=== PATIENT | female | born 1940 | race Caucasian/White ===

== ENCOUNTER → 2017-09-22 | Outpatient (CLI) | payer OTHER ==
[2016-04-04 14:37] VITALS: BP 150/71
--- NOTE | 2017-09-22 15:38 | CT ---
HISTORY: Memory loss. Study: CT brain without contrast. Comparison: None. Technique: Multiple axial images of the brain were obtained from the skull base to the vertex without administra tion of IV contrast. Findings: There is mild ventricular, as well as, sulcal and cisternal prominence, in addition to, at herosclerotic changes of the proximal intracranial carotid and vertebral arteries, which is not out o f proportion to the patient's chronological age. No acute intraparenchymal hemorrhage or mass can be identified. No extra-axial fluid collections are seen. No alteration in the attenuation of the bra in parenchyma can be identified to suggest acute or subacute ischemic change. The ventricular system is symmetric and nondilated. The extracranial structures are grossly unremarkable. IMPRESSION: Changes of advancing chronological age without acute intracranial abnormality. Reported By:
== END ==
LOC: EDSTATUS 14:00 → RAD 14:20
PROVIDERS: ATTEND Internal Medicine
DX: R41.3 Other amnesia (principal)
CPT/HCPCS: 70450

== ENCOUNTER 2020-03-30 16:28 | Inpatient (IN) ==
[2020-03-30] MEDS ORDERED: TUSSIONEX PENNKINETIC SUSP PO PRN (19:28)
[2020-03-30] MEDS ORDERED: SALINE 3% 15 ML NEB TX ONE (19:43)
[2020-03-30 20:06] LABS: ABG HCO3 27.6 mmol/L (22-26)
[2020-03-30 20:10] LABS: BASOPHILS % (AUTO) 0.3 % (0.2-1.0); EOSINOPHILS # (AUTO) 0.1 x10^3/uL (0.0-0.2); EOSINOPHILS % (AUTO) 1.5 % (0.9-2.9); HEMOGLOBIN 10.4 g/dL (12.0-16.0); LYMPHOCYTES # (AUTO) 1.7 X10^3/uL (1.3-2.9); LYMPHOCYTES % (AUTO) 22.7 % (21.0-51.0); MEAN CORPUSCULAR HEMOGLOBIN 29.7 pg (27.0-34.0); MEAN CORPUSCULAR HGB CONC 33.6 g/dL (33.0-35.0); MEAN CORPUSCULAR VOLUME 88.2 fL (80.0-100.0); MEAN PLATELET VOLUME 8.3 fL (7.4-11.0); MONOCYTES # (AUTO) 0.8 x10^3/uL (0.3-0.8); MONOCYTES % (AUTO) 10.5 % (0.0-13.0); PLATELET COUNT 210 X10^3/uL (150.0-450.0); RED BLOOD COUNT 3.51 X10^6/uL (3.5-5.4); WHITE BLOOD COUNT 7.7 X10^3/uL (3.6-10.0)
[2020-03-30] MEDS ORDERED: SALINE 3% 15 ML NEB TX NEB ONE (20:12)
[2020-03-30] MEDS ORDERED: PROVENTIL NEB TX 0.083% 2.5MG/ 3ML NEB PRN (20:13)
[2020-03-30 20:18] LABS: ALANINE AMINOTRANSFERASE 13 Units/L (12-78); ALKALINE PHOSPHATASE 60 Units/L (46-116); ASPARTATE AMINO TRANSFERASE 20 Units/L (15-37); BLOOD UREA NITROGEN 16 mg/dL (7-18); CALCIUM 8.6 mg/dL (8.5-10.1); CARBON DIOXIDE 28.6 mmol/L (21-32); CHLORIDE 102 mmol/L (98-107); COR CA(FOR HYPOALB) 9.4 mg/dL (8.5-10.1); CREATININE 1.02 mg/dL (0.55-1.02); SODIUM 138 mmol/L (136-145); TOTAL PROTEIN 7.3 g/dL (6.4-8.2); eGFR NON BLACK RACES 55 (>60)
--- NOTE | 2020-03-30 20:34 | RAD ---
HISTORYCOUGH, PNEUMONIASTUDYCHEST, 1 VIEWCOMPARISONNoneFINDINGSThe trachea is midline. The cardiac silhouette is upper limits of normal. Lungs appear hyperexpanded with flattening of the diaphragm, suggest underlying COPD changes. There is bilateral apical pleural thickening/scarring. A few calcified pulmonary nodule suspected in the right middle and lower lung zone. Hazy opacities at the right middle/lower lung zone concerning for patchy infiltrate/pneumonia. No pleural effusion or pneumothorax. Multilevel spondylosis.IMPRESSIONFindings concerning for patchy hazy infiltrate/pneumonia of the right middle/lower lung zone. Follow-up is recommended.Findings suggest underlying COPD changes and prior granulomatous disease.Electronically signed by: Cleopatra Almaraz (Mar 30, 2020 20:32:38)
[2020-03-30] MEDS ORDERED: LEVAQUIN PREMIX IV 750 MG 750 MG/150 ML BAG IV SCH (21:00)
[2020-03-30] MEDS ORDERED: NS 1/2 1000 ML IV 1,000 ML IV ONE (21:35)
[2020-03-30] MEDS: NS 1/2 1000 ML IV 1,000 ML IV SCH (21:55)
[2020-03-30] MEDS: VSL#3 PO SCH (21:55)
[2020-03-30] MEDS: ROBITUSSIN DM PO SCH ×2 (21:55→22:58)
[2020-03-30] MEDS ORDERED: FORTAZ or TAZICEF VIAL INJ 1 G in NS 100 ML IV + SPIKE MINIBAG* 100 ML IV SCH (22:00)
[2020-03-30] MEDS: AMBIEN PO PRN (23:56)
[2020-03-31 04:44] VITALS: BMI 19.7
[2020-03-31 06:43] LABS: BASOPHILS % (AUTO) 0.4 % (0.2-1.0); EOSINOPHILS # (AUTO) 0.1 x10^3/uL (0.0-0.2); EOSINOPHILS % (AUTO) 2.5 % (0.9-2.9); HEMATOCRIT 26.2 % (36.0-47.0); LYMPHOCYTES # (AUTO) 1.6 X10^3/uL (1.3-2.9); LYMPHOCYTES % (AUTO) 26.9 % (21.0-51.0); MEAN CORPUSCULAR HEMOGLOBIN 30.1 pg (27.0-34.0); MEAN CORPUSCULAR HGB CONC 34.3 g/dL (33.0-35.0); MEAN CORPUSCULAR VOLUME 87.8 fL (80.0-100.0); MEAN PLATELET VOLUME 8.3 fL (7.4-11.0); MONOCYTES # (AUTO) 0.7 x10^3/uL (0.3-0.8); MONOCYTES % (AUTO) 11.8 % (0.0-13.0); NEUTROPHILS # (AUTO) 3.4 x10^3/uL (2.2-4.8); NEUTROPHILS % (AUTO) 58.4 % (42.0-75.0); PLATELET COUNT 176 X10^3/uL (150.0-450.0); RED BLOOD COUNT 2.98 X10^6/uL (3.5-5.4); WHITE BLOOD COUNT 5.8 X10^3/uL (3.6-10.0)
[2020-03-31 06:59] LABS: ALANINE AMINOTRANSFERASE 12 Units/L (12-78); ALBUMIN 2.5 g/dL (3.4-5.0); ALKALINE PHOSPHATASE 52 Units/L (46-116); ASPARTATE AMINO TRANSFERASE 18 Units/L (15-37); BLOOD UREA NITROGEN 11 mg/dL (7-18); CALCIUM 8.3 mg/dL (8.5-10.1); CHLORIDE 106 mmol/L (98-107); COR CA(FOR HYPOALB) 9.5 mg/dL (8.5-10.1); CREATININE 0.93 mg/dL (0.55-1.02); SODIUM 140 mmol/L (136-145); TOTAL PROTEIN 6.5 g/dL (6.4-8.2); eGFR NON BLACK RACES > 60 (>60)
[2020-03-31] MEDS ORDERED: NS 1/2 1000 ML IV 1,000 ML IV ONE (09:05)
[2020-03-31] MEDS: ROBITUSSIN DM PO SCH ×4 (09:15→21:28)
[2020-03-31] MEDS: VSL#3 PO SCH (09:15)
[2020-03-31] MEDS: FORTAZ or TAZICEF VIAL INJ 1 G in NS 100 ML IV + SPIKE MINIBAG* 100 ML IV SCH ×2 (09:15→21:28)
[2020-03-31] MEDS: NS 1/2 1000 ML IV 1,000 ML IV SCH (09:16)
[2020-03-31 15:12] LABS: BILIRUBIN,URINE NEGATIVE (NEGATIVE); BLOOD/HEMOGLOBIN,URINE NEGATIVE (NEGATIVE); GLUCOSE, URINE NEGATIVE (NEGATIVE); KETONES,URINE NEGATIVE (NEGATIVE); LEUKOCYTE ESTERASE ,URINE NEGATIVE (NEGATIVE); NITRITES,URINE NEGATIVE (NEGATIVE); PH,URINE 6.5 (5.0 - 8.0); PROTEIN,URINE NEGATIVE (NEGATIVE); UROBILINOGEN,URINE NORMAL (NORMAL)
[2020-03-31 15:18] LABS: APPEARANCE,URINE CLEAR (CLEAR); COLOR,URINE PALE YELLOW (YELLOW)
--- NOTE | 2020-03-31 19:39 | DR.H&P ---
H&P - History & Physical for Day of: H&P Date: 03/30/20 - Chief Complaint Chief Complaint: FEVER, SOB, FATIGUE, WEAKNESS - History of Present Illness History of Present Illness: IS A 80 YEAR OLD PATIENT OF OURS WHO PRESENTED TO THE HOSPITAL A DIRECT ADMISSION DUE TO PERSISTENT FEVER, SHORTNESS OF BREATH, FATIGUE, AND WEAKNESS. FATIGUE AND WEAKNESS STARTED APPROXIMATELY TWO WEEKS PRIOR, BUT SHORTNESS OF BREATH AND FEVER STARTED ON THURSDAY. SHE HAS HAD RECENT EXPOSURE TO COVID-19. SHE REPORTS THAT HER RECENTLY FROM COVID. ON ARRIVAL TO THE HOSPITAL, VITALS WERE 98.1-71-20-100%-174/67. LABS WERE OBTAINED. ABNORMAL LAB VALUES INCLUDE THE FOLLOWING: HGB 10.4, HCT 31.0, ALBUMIN 3.0. AN ABG WAS OBTAINED AND REVEALED: PH 7.480, PC02 37, P02 96, HC03 27.6, 02 SAT 98, BASE EXCESS 4.0, FI02 21.0. URINALYSIS UNREMARKABLE. COVID-19 NEGATIVE. BLOOD CULTURES WERE SET UP. A CHEST XRAY WAS OBTAINED AND REVEALED: Findings concerning for patchy hazy infiltrate/pneumonia of the right middle/lower lung zone. Follow-up is recommended. Findings suggest underlying COPD changes and prior granulomatous disease. SHE WAS STARTED ON THE PNEUMONIA PROTOCOL WITH LEVAQUIN 750MG IV Q48H, FORTAZ 1G IV BID, TUSSIONEX 5ML P Q12H PRN, ROBITUSSIN DM 10 ML PO QID, 1/2NS AT 75 ML/HR, AND DUONEBS QID PRN. OTHERWISE, WE PLAN TO FOLLOW UP WITH AM LABS, CHEST XRAY, AND CONTINUE TO MONITOR. - Past Medical History Past Medical History: Arthritis, Depression, Dyslipidemia, GERD - Past Surgical History Surgical History: Hysterectomy, Ortho Surgery, Other - Family History Family Medical History: CA, Coronary Artery Disease, Heart Failure, Sudden Cardiac - Social History Alcohol Use: None Drug Use: None - Medications Home Medications: bee venom protein (honey bee) Allergy (Verified 03/31/20 03:14) codeine Adverse Reaction (Verified 02/18/18 10:08) CONTINUE taking the following medications diazepam 5 mg PO DAILY PRN 03/30/20 [History] donepezil 5 mg PO DAILY 03/30/20 [History] hydrocodone-acetaminophen 1 tab PO Q4-6H PRN 03/30/20 [History] levothyroxine 25 mcg PO DAILY 03/30/20 [History] megestrol 20 mg PO DAILYAC 03/30/20 [History] montelukast 10 mg PO DAILY 03/30/20 [History] multivitamin 1 tab PO DAILY 03/30/20 [History] sertraline 75 mg PO DAILY 03/30/20 [History] zinc gluconate 30 mg PO DAILY 03/30/20 [History] zolpidem 5 mg PO HS 03/30/20 [History] - Review of Systems Constitutional: See HPI, Fever, Chills, Weakness, Malaise Eyes: No Symptoms Reported ENT: No Symptoms Reported Respiratory: Shortness of Breath, Wheezing Cardiovascular: No Symptoms Reported Gastrointestinal: No Symptoms Reported Genitourinary: No Symptoms Reported Musculoskeletal: No Symptoms Reported Skin: No Symptoms Reported Neurological: Weakness - Physical Exam Vital Signs: Temperature 98.5 F Pulse Rate [Right Radial] 70 Pulse Rate 82 Respiratory Rate 18 Blood Pressure [Left Arm] 130/60 Blood Pressure 136/60 O2 Sat by Pulse Oximetry 99 Oriented: Normal Eyes: Normal Ear: Normal Nose: Normal Throat: Normal Respiratory: Diminished Throughout, Wheezes Throughout Cardiovascular: Normal : Normal Auscultation: Bowel Sounds: Normal Palpation: Normal Tenderness: Normal Skin: Normal Musculoskeletal: Normal Psychiatric: Normal Mood Description: Calm Affect: Normal Speech Pattern: Clear - Assessment/Plan (1) Pneumonia Qualifiers: Pneumonia type: due to unspecified organism Laterality: right Lung location: unspecified part of lung Qualified Code(s): J18.9 - Pneumonia, unspecified organism Status: Acute Plan: LEVAQUIN 750MG IV Q48H, FORTAZ 1G IV BID, TUSSIONEX 5ML P Q12H PRN, ROBITUSSIN DM 10 ML PO QID, 1/2NS AT 75 ML/HR, AND DUONEBS QID PRN. - Allergies Allergies/Adverse Reactions: Allergies Allergy/AdvReac Type Severity Reaction Status Date / Time bee venom protein (honey bee) Allergy Verified 03/31/20 03:14 codeine AdvReac Verified 02/18/18 10:08
[2020-03-31] MEDS: NORCO 5/325 MG TAB PO PRN (21:29)
[2020-03-31] MEDS: AMBIEN PO PRN (21:30)
[2020-04-01] MEDS: NS 1/2 1000 ML IV 1,000 ML IV SCH ×3 (00:32→12:44)
[2020-04-01] MEDS ORDERED: NS 1/2 1000 ML IV 1,000 ML IV ONE (04:06)
--- NOTE | 2020-04-01 06:36 | RAD ---
HISTORYSOBSTUDYCHEST, 1 [id number]/16/2020FINDINGSTrachea is midline. Heart size unchanged. Calcified granuloma within the right mid and lower lung. No new airspace opacity or pleural effusion. Biapical pleural parenchymal scarring is noted. No pneumothorax.IMPRESSIONNo acute cardiopulmonary abnormality or change from prior exam.Electronically signed by: JESSICA GERARDO (Apr 01, 2020 06:35:03)
[2020-04-01 07:16] LABS: BASOPHILS % (AUTO) 0.7 % (0.2-1.0); EOSINOPHILS # (AUTO) 0.2 x10^3/uL (0.0-0.2); EOSINOPHILS % (AUTO) 3.9 % (0.9-2.9); HEMATOCRIT 27.1 % (36.0-47.0); HEMOGLOBIN 9.2 g/dL (12.0-16.0); LYMPHOCYTES # (AUTO) 1.8 X10^3/uL (1.3-2.9); LYMPHOCYTES % (AUTO) 40.1 % (21.0-51.0); MEAN CORPUSCULAR HEMOGLOBIN 29.8 pg (27.0-34.0); MEAN CORPUSCULAR HGB CONC 34.1 g/dL (33.0-35.0); MEAN CORPUSCULAR VOLUME 87.5 fL (80.0-100.0); MEAN PLATELET VOLUME 8.2 fL (7.4-11.0); MONOCYTES # (AUTO) 0.5 x10^3/uL (0.3-0.8); MONOCYTES % (AUTO) 11.1 % (0.0-13.0); NEUTROPHILS % (AUTO) 44.2 % (42.0-75.0); PLATELET COUNT 194 X10^3/uL (150.0-450.0); RED CELL DISTRIBUTION WIDTH 14.3 % (11.6-16.5); WHITE BLOOD COUNT 4.5 X10^3/uL (3.6-10.0)
[2020-04-01 07:18] LABS: ALANINE AMINOTRANSFERASE 16 Units/L (12-78); ALBUMIN 2.5 g/dL (3.4-5.0); ALKALINE PHOSPHATASE 50 Units/L (46-116); ASPARTATE AMINO TRANSFERASE 20 Units/L (15-37); BLOOD UREA NITROGEN 13 mg/dL (7-18); CALCIUM 8.5 mg/dL (8.5-10.1); CARBON DIOXIDE 25.9 mmol/L (21-32); CHLORIDE 109 mmol/L (98-107); COR CA(FOR HYPOALB) 9.7 mg/dL (8.5-10.1); CREATININE 1.08 mg/dL (0.55-1.02); SODIUM 144 mmol/L (136-145); TOTAL PROTEIN 6.5 g/dL (6.4-8.2); eGFR NON BLACK RACES 52 (>60)
[2020-04-01] MEDS ORDERED: TAB-A-VITE PO ONE (07:28)
[2020-04-01] MEDS ORDERED: ARICEPT TAB 5 MG ONE (07:28)
[2020-04-01] MEDS ORDERED: SINGULAIR TAB 10 MG ONE (07:29)
[2020-04-01] MEDS ORDERED: MEGACE PO ONE (07:29)
[2020-04-01] MEDS ORDERED: ZOLOFT PO ONE (07:29)
[2020-04-01] MEDS ORDERED: ZINC GLUCONATE 30 MG PO SCH (09:00)
[2020-04-01] MEDS: ARICEPT TAB 5 MG PO SCH (09:41)
[2020-04-01] MEDS: TAB-A-VITE PO SCH (09:42)
[2020-04-01] MEDS: ZOLOFT PO SCH (09:52)
[2020-04-01] MEDS: SINGULAIR TAB 10 MG PO SCH (09:52)
[2020-04-01] MEDS: ROBITUSSIN DM PO SCH ×4 (09:52→21:08)
[2020-04-01] MEDS: FORTAZ or TAZICEF VIAL INJ 1 G in NS 100 ML IV + SPIKE MINIBAG* 100 ML IV SCH ×2 (09:52→21:08)
[2020-04-01] MEDS: MEGACE PO SCH ×2 (09:52→16:28)
[2020-04-01] MEDS: ZINC SULFATE PO SCH (09:53)
[2020-04-01] MEDS: SYNTHROID 25 mcg TAB PO SCH (09:53)
[2020-04-01] MEDS: VSL#3 PO SCH (09:53)
--- NOTE | 2020-04-01 12:05 | PCM.PROG ---
Progress Note - Progress Note for Day of Date of Exam: 04/01/20 - Subjective Subjective: IS BEING TREATED FOR RIGHT MIDDLE AND LOWER LOBE PNEUMONIA. TODAY, SHE IS ALERT AND ORIENTED, LYING IN BED ON MORNING ROUNDS. SHE CONTINUES WITH COMPLAINTS OF SHORTNESS OF BREATH AND WEAKNESS TODAY. SHE DOES ADMIT TO SLIGHT IMPROVEMENT IN SYMPTOMS SINCE ONE DAY PRIOR. ON EXAMINATION, HEART IS REGULAR IN RATE AND RHYTHM. BILATERAL LUNGS ARE NOTED WITH SCATTERED WHEEZING THROUGHOUT. ABDOMEN IS ROUND, SOFT, AND NON-TENDER WITH NORMAL BOWEL SOUNDS NOTED IN ALL QUADRANTS. HER VITALS THIS MORNING ARE 98.2-70-18-100%-149/70. LABS WERE OBTAINED. ABNORMAL LAB VALUES INCLUDE THE FOLLOWING: RBC 3.10, HGB 9.2, HCT 27.1, CHLORIDE 109, CREATININE 1.08, ALBUMIN 2.5. BLOOD CULTURES ARE PENDING. A CHEST XRAY WAS OBTAINED THIS MORNING AND REVEALED: Trachea is midline. Heart size unchanged. Calcified granuloma within the right mid and lower lung. No new airspace opacity or pleural effusion. Biapical pleural parenchymal scarring is noted. No pneumothorax. SHE IS CURRENTLY RECEIVING 1/2NS AT 75 ML/HR, LEVAQUIN 750MG IV Q48H, FORTAZ 1G IV BID, TUSSIONEX 5ML PO Q12H PRN, ROBITUSSIN DM 10 ML PO QID, AND HER HOME MEDICATIONS WERE RESUMED. WE WILL CONTINUE WITH CURRENT PLAN OF CARE TODAY. OTHERWISE, WE WILL FOLLOW UP WITH AM LABS AND CONTINUE TO MONITOR. - Past Medical Family Social History Past Med/Fam/Surg Hx: No changes since H&P Allergies: Allergies bee venom protein (honey bee) Allergy (Verified 03/31/20 03:14) codeine Adverse Reaction (Verified 02/18/18 10:08) - Review of Systems ROS: No change since H&P - Vital Signs and I&O's Vital Signs: Temperature 98.2 F Pulse Rate [Right Radial] 70 Pulse Rate 73 Respiratory Rate 18 Blood Pressure [Left Arm] 149/70 Blood Pressure 136/60 O2 Sat by Pulse Oximetry 95 Intake and Output: Intake & Output 03/30/20 03/31/20 04/01/20 04/02/20 11:59 11:59 11:59 11:59 Intake Total 986 / 986 3964 / 3964 Output Total 950 / 950 Balance 986 / 986 3014 / 3014 - Physical Exam Oriented: Normal Eyes: Normal Ear: Normal Nose: Normal Throat: Normal Respiratory: Generalized, Diminished, Wheezes Cardiovascular: Normal : Normal Auscultation: Bowel Sounds: Normal Palpation: Normal Tenderness: Normal Skin: Normal Musculoskeletal: Normal Psychiatric: Normal Mood Description: Calm Affect: Normal Speech Pattern: Clear, Appropriate - Laboratory and Diagnostics Result Diagrams: 04/01/20 06:35 04/01/20 06:35 Labs: 03/30/20 20:10 Blood Blood Culture - Preliminary 03/30/20 20:18 Blood Blood Culture - Preliminary Laboratory WBC 4.5 X10^3/uL (3.6-10.0) 04/01/20 06:35 RBC 3.10 X10^6/uL (3.5-5.4) L 04/01/20 06:35 Hgb 9.2 g/dL (12.0-16.0) L 04/01/20 06:35 Hct 27.1 % (36.0-47.0) L 04/01/20 06:35 MCV 87.5 fL (80.0-100.0) 04/01/20 06:35 MCH 29.8 pg (27.0-34.0) 04/01/20 06:35 MCHC 34.1 g/dL (33.0-35.0) 04/01/20 06:35 RDW 14.3 % (11.6-16.5) 04/01/20 06:35 Plt Count 194 X10^3/uL (150.0-450.0) 04/01/20 06:35 MPV 8.2 fL (7.4-11.0) 04/01/20 06:35 Neut % (Auto) 44.2 % (42.0-75.0) 04/01/20 06:35 Lymph % (Auto) 40.1 % (21.0-51.0) 04/01/20 06:35 [place] % (Auto) 11.1 % (0.0-13.0) 04/01/20 06:35 Eos % (Auto) 3.9 % (0.9-2.9) H 04/01/20 06:35 Baso % (Auto) 0.7 % (0.2-1.0) 04/01/20 06:35 Neut # (Auto) 2.0 x10^3/uL (2.2-4.8) L 04/01/20 06:35 Lymph # (Auto) 1.8 X10^3/uL (1.3-2.9) 04/01/20 06:35 [place] # (Auto) 0.5 x10^3/uL (0.3-0.8) 04/01/20 06:35 Eos # (Auto) 0.2 x10^3/uL (0.0-0.2) 04/01/20 06:35 Baso # (Auto) 0.0 X10^3/uL (0.0-0.1) 04/01/20 06:35 Absolute Nucleated RBC 0.1 /100WBC 04/01/20 06:35 Sample Site Lb 03/30/20 20:00 ABG pH 7.480 (7.35-7.45) H 03/30/20 20:00 ABG pCO2 37.0 mmHg (35.0-45.0) 03/30/20 20:00 ABG pO2 96.0 mmHg (80.0-100.0) 03/30/20 20:00 ABG HCO3 27.6 mmol/L (22-26) H 03/30/20 20:00 ABG O2 Saturation 98.0 % (90-100) 03/30/20 20:00 ABG Base Excess 4.0 mmol/L (-2.0-2.0) H 03/30/20 20:00 Teodoro Test N/a 03/30/20 20:00 A-a Gradient 7.0 mmHg 03/30/20 20:00 FiO2 21.0 03/30/20 20:00 Blood Gas Comments Neema well ae 03/30/20 20:00 Sodium 144 mmol/L (136-145) 04/01/20 06:35 Corrected Sodium TNP 04/01/20 06:35 Potassium 4.0 mmol/L (3.5-5.1) 04/01/20 06:35 Chloride 109 mmol/L (98-107) H 04/01/20 06:35 Carbon Dioxide 25.9 mmol/L (21-32) 04/01/20 06:35 BUN 13 mg/dL (7-18) 04/01/20 06:35 Creatinine 1.08 mg/dL (0.55-1.02) H 04/01/20 06:35 Est GFR (MDRD) Af Amer > 60 (>60) 04/01/20 06:35 Est GFR (MDRD) Non-Af 52 (>60) L 04/01/20 06:35 Glucose 87 mg/dL (65-99) 04/01/20 06:35 Calcium 8.5 mg/dL (8.5-10.1) 04/01/20 06:35 Corrected Calcium 9.7 mg/dL (8.5-10.1) 04/01/20 06:35 Total Bilirubin 0.20 mg/dL (0.2-1.0) 04/01/20 06:35 AST 20 Units/L (15-37) 04/01/20 06:35 ALT 16 Units/L (12-78) 04/01/20 06:35 Alkaline Phosphatase 50 Units/L (46-116) 04/01/20 06:35 Total Protein 6.5 g/dL (6.4-8.2) 04/01/20 06:35 Albumin 2.5 g/dL (3.4-5.0) L 04/01/20 06:35 Globulin 4.0 g/dL (2.5-4.5) 04/01/20 06:35 Albumin/Globulin Ratio 0.6 Ratio (1.1-2.1) L 04/01/20 06:35 Specimen Type Clean catch urine 03/31/20 14:25 Urine Color Pale yellow (YELLOW) 03/31/20 14:25 Urine Appearance Clear (CLEAR) 03/31/20 14:25 Urine pH 6.5 (5.0 - 8.0) 03/31/20 14:25 Ur Specific [place] 1.010 (1.000-1.030) 03/31/20 14:25 Urine Protein Negative (NEGATIVE) 03/31/20 14:25 Urine Glucose (UA) Negative (NEGATIVE) 03/31/20 14:25 Urine Ketones Negative (NEGATIVE) 03/31/20 14:25 Urine Occult Blood Negative (NEGATIVE) 03/31/20 14:25 Urine Nitrite Negative (NEGATIVE) 03/31/20 14:25 Urine Bilirubin Negative (NEGATIVE) 03/31/20 14:25 Urine Urobilinogen Normal (NORMAL) 03/31/20 14:25 Ur Leukocyte Esterase Negative (NEGATIVE) 03/31/20 14:25 SARS-CoV-2 (PCR) Negative (NEGATIVE) 03/30/20 17:53 - Plan (1) Pneumonia Status: Acute Qualifiers: Pneumonia type: due to unspecified organism Laterality: right Lung location: unspecified part of lung Qualified Code(s): J18.9 - Pneumonia, unspecified organism Plan: LEVAQUIN 750MG IV Q48H, FORTAZ 1G IV BID, TUSSIONEX 5ML P Q12H PRN, ROBITUSSIN DM 10 ML PO QID, 1/2NS AT 75 ML/HR, AND DUONEBS QID PRN.
[2020-04-01] MEDS: AMBIEN PO PRN (21:09)
[2020-04-01] MEDS: NORCO 5/325 MG TAB PO PRN (21:09)
[2020-04-01] MEDS ORDERED: LEVAQUIN PREMIX IV 750 MG 750 MG/150 ML BAG IV SCH (22:00)
[2020-04-02] MEDS ORDERED: NS 1/2 1000 ML IV 1,000 ML IV ONE ×2 (03:01→18:34)
[2020-04-02] MEDS: NS 1/2 1000 ML IV 1,000 ML IV SCH ×3 (05:04→18:37)
--- NOTE | 2020-04-02 05:20 | RAD ---
HISTORYSOBSTUDYCHEST, 1 [id number]/18/2020FINDINGSThe trachea is midline. The cardiac silhouette is stable. No new consolidation or pleural effusion. No pneumothorax.. The lungs are clear without focal infiltrate or effusion. The bony thorax is unremarkable.IMPRESSIONIs stable exam.Electronically signed by: Cleopatra Almaraz (Apr 02, 2020 05:18:48)
[2020-04-02 06:19] LABS: BASOPHILS % (AUTO) 0.7 % (0.2-1.0); EOSINOPHILS # (AUTO) 0.3 x10^3/uL (0.0-0.2); EOSINOPHILS % (AUTO) 5.5 % (0.9-2.9); HEMATOCRIT 26.2 % (36.0-47.0); HEMOGLOBIN 8.8 g/dL (12.0-16.0); LYMPHOCYTES # (AUTO) 2.1 X10^3/uL (1.3-2.9); LYMPHOCYTES % (AUTO) 43.9 % (21.0-51.0); MEAN CORPUSCULAR HEMOGLOBIN 29.4 pg (27.0-34.0); MEAN CORPUSCULAR HGB CONC 33.7 g/dL (33.0-35.0); MEAN CORPUSCULAR VOLUME 87.3 fL (80.0-100.0); MEAN PLATELET VOLUME 8.3 fL (7.4-11.0); MONOCYTES # (AUTO) 0.5 x10^3/uL (0.3-0.8); MONOCYTES % (AUTO) 10.7 % (0.0-13.0); NEUTROPHILS # (AUTO) 1.9 x10^3/uL (2.2-4.8); NEUTROPHILS % (AUTO) 39.2 % (42.0-75.0); PLATELET COUNT 196 X10^3/uL (150.0-450.0); RED CELL DISTRIBUTION WIDTH 14.2 % (11.6-16.5); WHITE BLOOD COUNT 4.7 X10^3/uL (3.6-10.0)
[2020-04-02 06:37] LABS: ALANINE AMINOTRANSFERASE 14 Units/L (12-78); ALBUMIN 2.4 g/dL (3.4-5.0); ALKALINE PHOSPHATASE 47 Units/L (46-116); ASPARTATE AMINO TRANSFERASE 21 Units/L (15-37); BLOOD UREA NITROGEN 13 mg/dL (7-18); CALCIUM 8.1 mg/dL (8.5-10.1); CARBON DIOXIDE 24.3 mmol/L (21-32); CHLORIDE 108 mmol/L (98-107); COR CA(FOR HYPOALB) 9.4 mg/dL (8.5-10.1); CREATININE 0.98 mg/dL (0.55-1.02); SODIUM 143 mmol/L (136-145); TOTAL PROTEIN 6.2 g/dL (6.4-8.2); eGFR NON BLACK RACES 58 (>60)
[2020-04-02] MEDS: FORTAZ or TAZICEF VIAL INJ 1 G in NS 100 ML IV + SPIKE MINIBAG* 100 ML IV SCH ×2 (09:30→20:47)
[2020-04-02] MEDS: ARICEPT TAB 5 MG PO SCH (09:30)
[2020-04-02] MEDS: ROBITUSSIN DM PO SCH ×4 (09:30→20:49)
[2020-04-02] MEDS: TAB-A-VITE PO SCH (09:31)
[2020-04-02] MEDS: SINGULAIR TAB 10 MG PO SCH (09:31)
[2020-04-02] MEDS: VSL#3 PO SCH (09:31)
[2020-04-02] MEDS: SYNTHROID 25 mcg TAB PO SCH (09:31)
[2020-04-02] MEDS: ZINC SULFATE PO SCH (09:31)
[2020-04-02] MEDS: ZOLOFT PO SCH (09:32)
--- NOTE | 2020-04-02 11:28 | PCM.PROG ---
Progress Note - Progress Note for Day of Date of Exam: 04/02/20 - Subjective Subjective: IS BEING TREATED FOR RIGHT MIDDLE AND LOWER LOBE PNEUMONIA AND COPD. TODAY, SHE IS ALERT AND ORIENTED, LYING IN BED ON MORNING ROUNDS. SHE CONTINUES WITH COMPLAINTS OF SHORTNESS OF BREATH AND WEAKNESS TODAY. SHE DOES ADMIT TO SLIGHT IMPROVEMENT IN SYMPTOMS SINCE ONE DAY PRIOR. ON EXAMINATION, HEART IS REGULAR IN RATE AND RHYTHM. BILATERAL LUNGS ARE NOTED WITH SCATTERED WHEEZING THROUGHOUT. ABDOMEN IS ROUND, SOFT, AND NON-TENDER WITH NORMAL BOWEL SOUNDS NOTED IN ALL QUADRANTS. HER VITALS THIS MORNING ARE 97.6-70-18-99%-154/69. LABS WERE OBTAINED. ABNORMAL LAB VALUES INCLUDE THE FOLLOWING: RBC 3.00, HGB 8.8, HCT 26.2, CHLORIDE 108, CALCIUM 8.1, TOTAL PROTEIN 6.2, ALBUMIN 2.4. BLOOD CULTURES ARE PENDING. SHE IS CURRENTLY RECEIVING 1/2NS AT 75 ML/HR, LEVAQUIN 750MG IV Q48H, FORTAZ 1G IV BID, TUSSIONEX 5ML PO Q12H PRN, ROBITUSSIN DM 10 ML PO QID, AND HER HOME MEDICATIONS WERE RESUMED. WE WILL CONTINUE WITH CURRENT PLAN OF CARE TODAY. OTHERWISE, WE WILL FOLLOW UP WITH AM LABS AND CONTINUE TO MONITOR. - Past Medical Family Social History Past Med/Fam/Surg Hx: No changes since H&P Allergies: Allergies bee venom protein (honey bee) Allergy (Verified 03/31/20 03:14) codeine Adverse Reaction (Verified 02/18/18 10:08) - Review of Systems ROS: No change since H&P - Vital Signs and I&O's Vital Signs: Temperature 97.6 F Pulse Rate [Right Radial] 70 Pulse Rate 74 Respiratory Rate 18 Blood Pressure [Left Arm] 154/69 Blood Pressure 136/60 O2 Sat by Pulse Oximetry 99 Intake and Output: Intake & Output 03/30/20 03/31/20 04/01/20 04/02/20 11:59 11:59 11:59 11:59 Intake Total 986 / 986 3964 / 3964 1869 Output Total 950 / 950 0 / 0 Balance 986 / 986 3014 / 3014 1869 - Physical Exam Oriented: Normal Eyes: Normal Ear: Normal Nose: Normal Throat: Normal Respiratory: Generalized, Diminished, Wheezes Cardiovascular: Normal : Normal Auscultation: Bowel Sounds: Normal Palpation: Normal Tenderness: Normal Skin: Normal Musculoskeletal: Normal Psychiatric: Normal Mood Description: Calm Affect: Normal Speech Pattern: Clear, Appropriate - Laboratory and Diagnostics Result Diagrams: 04/02/20 05:13 04/02/20 05:13 Labs: 03/30/20 20:18 Blood Blood Culture - Final 03/30/20 20:10 Blood Blood Culture - Preliminary Laboratory WBC 4.7 X10^3/uL (3.6-10.0) 04/02/20 05:13 RBC 3.00 X10^6/uL (3.5-5.4) L 04/02/20 05:13 Hgb 8.8 g/dL (12.0-16.0) L 04/02/20 05:13 Hct 26.2 % (36.0-47.0) L 04/02/20 05:13 MCV 87.3 fL (80.0-100.0) 04/02/20 05:13 MCH 29.4 pg (27.0-34.0) 04/02/20 05:13 MCHC 33.7 g/dL (33.0-35.0) 04/02/20 05:13 RDW 14.2 % (11.6-16.5) 04/02/20 05:13 Plt Count 196 X10^3/uL (150.0-450.0) 04/02/20 05:13 MPV 8.3 fL (7.4-11.0) 04/02/20 05:13 Neut % (Auto) 39.2 % (42.0-75.0) L 04/02/20 05:13 Lymph % (Auto) 43.9 % (21.0-51.0) 04/02/20 05:13 [place] % (Auto) 10.7 % (0.0-13.0) 04/02/20 05:13 Eos % (Auto) 5.5 % (0.9-2.9) H 04/02/20 05:13 Baso % (Auto) 0.7 % (0.2-1.0) 04/02/20 05:13 Neut # (Auto) 1.9 x10^3/uL (2.2-4.8) L 04/02/20 05:13 Lymph # (Auto) 2.1 X10^3/uL (1.3-2.9) 04/02/20 05:13 [place] # (Auto) 0.5 x10^3/uL (0.3-0.8) 04/02/20 05:13 Eos # (Auto) 0.3 x10^3/uL (0.0-0.2) H 04/02/20 05:13 Baso # (Auto) 0.0 X10^3/uL (0.0-0.1) 04/02/20 05:13 Absolute Nucleated RBC 0.0 /100WBC 04/02/20 05:13 Sample Site Lb 03/30/20 20:00 ABG pH 7.480 (7.35-7.45) H 03/30/20 20:00 ABG pCO2 37.0 mmHg (35.0-45.0) 03/30/20 20:00 ABG pO2 96.0 mmHg (80.0-100.0) 03/30/20 20:00 ABG HCO3 27.6 mmol/L (22-26) H 03/30/20 20:00 ABG O2 Saturation 98.0 % (90-100) 03/30/20 20:00 ABG Base Excess 4.0 mmol/L (-2.0-2.0) H 03/30/20 20:00 Teodoro Test N/a 03/30/20 20:00 A-a Gradient 7.0 mmHg 03/30/20 20:00 FiO2 21.0 03/30/20 20:00 Blood Gas Comments Neema well ae 03/30/20 20:00 Sodium 143 mmol/L (136-145) 04/02/20 05:13 Corrected Sodium TNP 04/02/20 05:13 Potassium 3.7 mmol/L (3.5-5.1) 04/02/20 05:13 Chloride 108 mmol/L (98-107) H 04/02/20 05:13 Carbon Dioxide 24.3 mmol/L (21-32) 04/02/20 05:13 BUN 13 mg/dL (7-18) 04/02/20 05:13 Creatinine 0.98 mg/dL (0.55-1.02) 04/02/20 05:13 Est GFR (MDRD) Af Amer > 60 (>60) 04/02/20 05:13 Est GFR (MDRD) Non-Af 58 (>60) L 04/02/20 05:13 Glucose 90 mg/dL (65-99) 04/02/20 05:13 Calcium 8.1 mg/dL (8.5-10.1) L 04/02/20 05:13 Corrected Calcium 9.4 mg/dL (8.5-10.1) 04/02/20 05:13 Total Bilirubin 0.20 mg/dL (0.2-1.0) 04/02/20 05:13 AST 21 Units/L (15-37) 04/02/20 05:13 ALT 14 Units/L (12-78) 04/02/20 05:13 Alkaline Phosphatase 47 Units/L (46-116) 04/02/20 05:13 Total Protein 6.2 g/dL (6.4-8.2) L 04/02/20 05:13 Albumin 2.4 g/dL (3.4-5.0) L 04/02/20 05:13 Globulin 3.8 g/dL (2.5-4.5) 04/02/20 05:13 Albumin/Globulin Ratio 0.6 Ratio (1.1-2.1) L 04/02/20 05:13 Specimen Type Clean catch urine 03/31/20 14:25 Urine Color Pale yellow (YELLOW) 03/31/20 14:25 Urine Appearance Clear (CLEAR) 03/31/20 14:25 Urine pH 6.5 (5.0 - 8.0) 03/31/20 14:25 Ur Specific [place] 1.010 (1.000-1.030) 03/31/20 14:25 Urine Protein Negative (NEGATIVE) 03/31/20 14:25 Urine Glucose (UA) Negative (NEGATIVE) 03/31/20 14:25 Urine Ketones Negative (NEGATIVE) 03/31/20 14:25 Urine Occult Blood Negative (NEGATIVE) 03/31/20 14:25 Urine Nitrite Negative (NEGATIVE) 03/31/20 14:25 Urine Bilirubin Negative (NEGATIVE) 03/31/20 14:25 Urine Urobilinogen Normal (NORMAL) 03/31/20 14:25 Ur Leukocyte Esterase Negative (NEGATIVE) 03/31/20 14:25 SARS-CoV-2 (PCR) Negative (NEGATIVE) 03/30/20 17:53 - Plan (1) Pneumonia Status: Acute Qualifiers: Pneumonia type: due to unspecified organism Laterality: right Lung location: unspecified part of lung Qualified Code(s): J18.9 - Pneumonia, unspecified organism Plan: LEVAQUIN 750MG IV Q48H, FORTAZ 1G IV BID, TUSSIONEX 5ML P Q12H PRN, ROBITUSSIN DM 10 ML PO QID, 1/2NS AT 75 ML/HR, AND DUONEBS QID PRN. (2) COPD (chronic obstructive pulmonary disease) Status: Acute Qualifiers: COPD type: unspecified COPD Qualified Code(s): J44.9 - Chronic obstructive pulmonary disease, unspecified
[2020-04-02] MEDS: MEGACE PO SCH (17:47)
[2020-04-02] MEDS: AMBIEN PO PRN (20:49)
[2020-04-02] MEDS: NORCO 5/325 MG TAB PO PRN (20:49)
--- NOTE | 2020-04-03 05:41 | RAD ---
HISTORYSOBSTUDYCHEST, 1 [id number]/19/2020FINDINGSThe trachea is midline. The cardiac silhouette is stable. No new consolidation. Right apical opacity unchanged.. The bony thorax is unremarkable.IMPRESSIONNo significant interval change.Electronically signed by: Cleopatra Almaraz (Apr 03, 2020 05:40:21)
[2020-04-03 06:33] LABS: BASOPHILS % (AUTO) 0.9 % (0.2-1.0); EOSINOPHILS # (AUTO) 0.3 x10^3/uL (0.0-0.2); HEMATOCRIT 25.6 % (36.0-47.0); HEMOGLOBIN 8.7 g/dL (12.0-16.0); LYMPHOCYTES % (AUTO) 44.8 % (21.0-51.0); MEAN CORPUSCULAR HEMOGLOBIN 29.5 pg (27.0-34.0); MEAN CORPUSCULAR HGB CONC 34.1 g/dL (33.0-35.0); MEAN CORPUSCULAR VOLUME 86.4 fL (80.0-100.0); MEAN PLATELET VOLUME 8.2 fL (7.4-11.0); MONOCYTES # (AUTO) 0.5 x10^3/uL (0.3-0.8); MONOCYTES % (AUTO) 11.5 % (0.0-13.0); NEUTROPHILS # (AUTO) 1.6 x10^3/uL (2.2-4.8); NEUTROPHILS % (AUTO) 36.8 % (42.0-75.0); PLATELET COUNT 203 X10^3/uL (150.0-450.0); RED BLOOD COUNT 2.96 X10^6/uL (3.5-5.4); RED CELL DISTRIBUTION WIDTH 14.3 % (11.6-16.5); WHITE BLOOD COUNT 4.4 X10^3/uL (3.6-10.0)
[2020-04-03 06:44] LABS: ALANINE AMINOTRANSFERASE 17 Units/L (12-78); ALBUMIN 2.5 g/dL (3.4-5.0); ALKALINE PHOSPHATASE 47 Units/L (46-116); ASPARTATE AMINO TRANSFERASE 24 Units/L (15-37); BLOOD UREA NITROGEN 14 mg/dL (7-18); CARBON DIOXIDE 26.4 mmol/L (21-32); CHLORIDE 110 mmol/L (98-107); COR CA(FOR HYPOALB) 9.2 mg/dL (8.5-10.1); CREATININE 1.03 mg/dL (0.55-1.02); SODIUM 145 mmol/L (136-145); TOTAL PROTEIN 6.3 g/dL (6.4-8.2); eGFR NON BLACK RACES 55 (>60)
[2020-04-03] MEDS: ARICEPT TAB 5 MG PO SCH (08:47)
[2020-04-03] MEDS: VSL#3 PO SCH (08:48)
[2020-04-03] MEDS: ZINC SULFATE PO SCH (08:48)
[2020-04-03] MEDS: ZOLOFT PO SCH (08:48)
[2020-04-03] MEDS: SYNTHROID 25 mcg TAB PO SCH (08:49)
[2020-04-03] MEDS: ROBITUSSIN DM PO SCH (08:49)
[2020-04-03] MEDS: TAB-A-VITE PO SCH (08:49)
[2020-04-03] MEDS: SINGULAIR TAB 10 MG PO SCH (08:50)
[2020-04-03 10:38] VITALS: BP 128/63
[2020-04-03] MEDS: FORTAZ or TAZICEF VIAL INJ 1 G in NS 100 ML IV + SPIKE MINIBAG* 100 ML IV SCH (10:41)
[2020-04-03] MEDS: NS 1/2 1000 ML IV 1,000 ML IV SCH (10:41)
[2020-04-03] MEDS ORDERED: PNEUMOVAX 23 IM ONE (11:00)
--- NOTE | 2020-04-03 11:38 | US ---
HISTORYNew onset HYPOTHYROIDISMSTUDYTHYROID ultrasoundCOMPARISONNoneTECHNIQUEMultiple grayscale and color-flow Doppler images of the thyroid were obtained.FINDINGSRight lobe of the thyroid gland measures 3.1 x 1.5 x 1.0 cm. Left lobe measures 2.3 x 1.4 x 1.2 cm. Thyroid echotexture is homogeneous. No increased vascularity is seen. Calcified plaq ue is seen in the region of the left carotid arteries. No jugular lymphadenopathy is seen.IMPRESSIONN o thyroid abnormality is seen.Electronically signed by: Alistair Ewing (Apr 03, 2020 11:36:48)
== END 2020-04-03 11:55 | disposition home health service (06) | DRG 195 ==
LOC: OBS → MED/SURG 19:39
PROVIDERS: ADMIT Internal Medicine; ATTEND Internal Medicine
DX: J44.9 Chronic obstructive pulmonary disease, unspecified; R26.89 Other abnormalities of gait and mobility; Z23 Encounter for immunization; E78.2 Mixed hyperlipidemia; Z20.828 Contact with and (suspected) exposure to other viral communicable diseases; J18.8 Other pneumonia, unspecified organism; R06.02 Shortness of breath; K21.9 Gastro-esophageal reflux disease without esophagitis; R50.9 Fever, unspecified

== ENCOUNTER 2022-12-22 11:48 | Observation (INO) ==
[2022-12-22] MEDS ORDERED: NS 250 ML IV 250 ML IV ONE (14:53)
[2022-12-22 15:32] LABS: BASOPHILS % (AUTO) 0.7 % (0.2-1.0); EOSINOPHILS # (AUTO) 0.1 x10^3/uL (0.0-0.2); EOSINOPHILS % (AUTO) 2.6 % (0.9-2.9); HEMATOCRIT 28.3 % (36.0-47.0); HEMOGLOBIN 9.7 g/dL (12.0-16.0); LYMPHOCYTES # (AUTO) 1.4 X10^3/uL (1.3-2.9); MEAN CORPUSCULAR HEMOGLOBIN 30.6 pg (27.0-34.0); MEAN CORPUSCULAR HGB CONC 34.4 g/dL (33.0-35.0); MEAN CORPUSCULAR VOLUME 88.9 fL (80.0-100.0); MEAN PLATELET VOLUME 7.8 fL (7.4-11.0); MONOCYTES # (AUTO) 0.4 x10^3/uL (0.3-0.8); MONOCYTES % (AUTO) 10.5 % (0.0-13.0); NEUTROPHILS # (AUTO) 2.2 x10^3/uL (2.2-4.8); NEUTROPHILS % (AUTO) 52.2 % (42.0-75.0); PLATELET COUNT 190 X10^3/uL (150.0-450.0); RED BLOOD COUNT 3.18 X10^6/uL (3.5-5.4); RED CELL DISTRIBUTION WIDTH 13.7 % (11.6-16.5); WHITE BLOOD COUNT 4.3 X10^3/uL (3.6-10.0)
[2022-12-22 15:51] LABS: ALANINE AMINOTRANSFERASE 13 Units/L (12-78); ALBUMIN 3.3 g/dL (3.4-5.0); ALKALINE PHOSPHATASE 64 Units/L (46-116); ASPARTATE AMINO TRANSFERASE 21 Units/L (15-37); BLOOD UREA NITROGEN 20 mg/dL (7-18); CALCIUM 8.2 mg/dL (8.5-10.1); CARBON DIOXIDE 29.5 mmol/L (21-32); CHLORIDE 105 mmol/L (98-107); COR CA(FOR HYPOALB) 8.8 mg/dL (8.5-10.1); CREATININE 1.43 mg/dL (0.55-1.02); GLUCOSE 89 mg/dL (65-99); POTASSIUM 3.9 mmol/L (3.5-5.1); SODIUM 142 mmol/L (136-145); TOTAL PROTEIN 6.3 g/dL (6.4-8.2); eGFR NON BLACK RACES 37 (>60)
[2022-12-22] MEDS: NS 1,000 ML IV 1,000 ML IV SCH (17:01)
[2022-12-22] MEDS: ZOCOR TAB 20 MG PO SCH (20:50)
[2022-12-22] MEDS: SINGULAIR TAB 10 MG PO SCH (20:50)
[2022-12-22] MEDS: PERIACTIN TAB 4 MG PO SCH (20:50)
[2022-12-22] MEDS: MELATONIN PO SCH (20:52)
[2022-12-22] MEDS ORDERED: PATIENT'S HOME MEDICATION (Melatonin 10 mg Tablet) PO SCH (21:00)
[2022-12-22 23:52] LABS: BILIRUBIN,URINE NEGATIVE (NEGATIVE); BLOOD/HEMOGLOBIN,URINE 1+ (NEGATIVE); GLUCOSE, URINE NEGATIVE (NEGATIVE); KETONES,URINE NEGATIVE (NEGATIVE); LEUKOCYTE ESTERASE ,URINE NEGATIVE (NEGATIVE); NITRITES,URINE NEGATIVE (NEGATIVE); PROTEIN,URINE NEGATIVE (NEGATIVE); UROBILINOGEN,URINE NORMAL (NORMAL)
[2022-12-22 23:57] LABS: APPEARANCE,URINE CLEAR (CLEAR); BACTERIA,URINE NEGATIVE /HPF (NEGATIVE); COLOR,URINE PALE YELLOW (YELLOW); RBC,URINE 0-2 /HPF (0-3); SQUAMOUS EPITHELIAL CELL,UR RARE /HPF (NEGATIVE)
[2022-12-23] MEDS: NS 1,000 ML IV 1,000 ML IV SCH ×4 (03:49→19:00)
[2022-12-23] MEDS: SYNTHROID 25 mcg TAB PO SCH (05:34)
[2022-12-23 05:36] LABS: BASOPHILS % (AUTO) 1.1 % (0.2-1.0); EOSINOPHILS # (AUTO) 0.2 x10^3/uL (0.0-0.2); EOSINOPHILS % (AUTO) 4.1 % (0.9-2.9); HEMATOCRIT 25.8 % (36.0-47.0); LYMPHOCYTES # (AUTO) 1.4 X10^3/uL (1.3-2.9); LYMPHOCYTES % (AUTO) 38.9 % (21.0-51.0); MEAN CORPUSCULAR VOLUME 88.5 fL (80.0-100.0); MEAN PLATELET VOLUME 7.6 fL (7.4-11.0); MONOCYTES # (AUTO) 0.5 x10^3/uL (0.3-0.8); MONOCYTES % (AUTO) 14.4 % (0.0-13.0); NEUTROPHILS # (AUTO) 1.5 x10^3/uL (2.2-4.8); NEUTROPHILS % (AUTO) 41.5 % (42.0-75.0); PLATELET COUNT 180 X10^3/uL (150.0-450.0); RED BLOOD COUNT 2.91 X10^6/uL (3.5-5.4); RED CELL DISTRIBUTION WIDTH 13.8 % (11.6-16.5); WHITE BLOOD COUNT 3.7 X10^3/uL (3.6-10.0)
[2022-12-23 05:54] LABS: ALANINE AMINOTRANSFERASE 11 Units/L (12-78); ALBUMIN 2.9 g/dL (3.4-5.0); ALKALINE PHOSPHATASE 58 Units/L (46-116); ASPARTATE AMINO TRANSFERASE 20 Units/L (15-37); BLOOD UREA NITROGEN 15 mg/dL (7-18); CHLORIDE 110 mmol/L (98-107); COR CA(FOR HYPOALB) 8.9 mg/dL (8.5-10.1); GLUCOSE 85 mg/dL (65-99); POTASSIUM 3.7 mmol/L (3.5-5.1); SODIUM 145 mmol/L (136-145); TOTAL PROTEIN 5.6 g/dL (6.4-8.2); eGFR NON BLACK RACES 42 (>60)
[2022-12-23] MEDS ORDERED: CONSULT PHARMACY - POTASSIUM & MAGNESIUM XX SCH ×2 (07:00→08:00)
--- NOTE | 2022-12-23 07:20 | RAD ---
HISTORYWEAKNESS, DEHYDRATION, ADULT FITSTUDYCHEST, 1 [id number]/23/2023.TECHNIQUEPA or AP view of the chestFINDINGSThe cardiac and mediastinal contours are within normal limits. The lungs are clear without focal consolidation or segmental collapse. No pleural effusion or pneumothorax. Soft tissue attenuation limits evaluation.IMPRESSIONNo acute pulmonary process.Electronically signed by: Larry Simpson (Dec 23, 2022 07:19:01)
[2022-12-23] MEDS ORDERED: K-DUR TAB 20 MEQ PO SCH (09:00)
[2022-12-23] MEDS: ARICEPT TAB 10 MG PO SCH (09:39)
[2022-12-23] MEDS: PERIACTIN TAB 4 MG PO SCH ×2 (09:39→20:12)
[2022-12-23] MEDS: PROzac PO SCH (09:39)
[2022-12-23] MEDS: PATIENT'S HOME MEDICATION (Vibegron [Gemtesa] 75 mg tablet) PO SCH (11:39)
--- NOTE | 2022-12-23 13:47 | RAD ---
HISTORYleft hip painSTUDYHIP, LEFTCOMPARISONNone availableFINDINGSNo acute fracture or malalignment is identified on the single provided AP view of the pelvis and left hip.There is mild-moderate degenerative narrowing of the superior femoroacetabular joints bilaterally. Spondylosis of the imaged lower lumbar spine also noted. No SI joint or pubic symphysis diastasis. Surrounding soft tissues are unremarkable.IMPRESSIONDegenerative changes as above without acute osseous abnormality.Electronically signed by: STORMY JUNIOR (Dec 23, 2022 13:46:32)
--- NOTE | 2022-12-23 15:07 | DR.UPDATE ---
H&P Update Prescription drug monitoring program results: PDMP reviewed and no concerns identified H&P Reviewed: Yes Any changes to H&P?: Yes Changes noted:: PRESENTED TO THE OFFICE WITH COMPLAINTS OF FATIGUE, MODERATE LEFT HIP PAIN, WEAKNESS, DIZZINESS, NEAR SYNCOPE, AND POOR APPETITE. HER SYMPTOMS STARTED ABOUT ONE WEEK PRIOR. DECISION WAS MADE TO ADMIT PATIENT TO THE HOSPITAL FOR FURTHER EVALUATION AND TREATMENT OF DEHYDRATION, GENERALIZED WEAKNESS, AND FAILURE TO THRIVE. HER DAUGHTER IS WITH HER AND REQUEST JAIL PLACEMENT. PATIENT IS IN AGREEMENT. ON ARRIVAL TO THE HOSPITAL, HER VITALS WERE 97.8-71-18-96%-162/72. LABS WERE OBTAINED. WBC 4.3, RBC 3.18, HGB 9.7, HCT 28.3, PLT COUNT 190, SODIUM 142, POTASSIUM 3.9, CHLORIDE 105, CARBON DIOXIDE 29.5, BUN 20, CREATININE 1.43, GLUCOSE 89, CALCIUM 8.2, AST 21, ALT 13, ALK PHOS 64, TOTAL PROTEIN 6.3, ALBUMIN 3.3. A URINALYSIS WAS OBTAINED AND WAS UNREMARKABLE, BUT A URINE CULTURE WAS SET UP. A CHEST XRAY WAS OBTAINED AND REVEALED: The cardiac and mediastinal contours are within normal limits. The lungs are clear without focal consolidation or segmental collapse. No pleural effusion or pneumothorax. Soft tissue attenuation limits evaluation. A LEFT HIP XRAY WAS OBTAINED AND REVEALED: No acute fracture or malalignment is identified on the single provided AP view of the pelvis and left hip. There is mild- moderate degenerative narrowing of the superior femoroacetabular joints bilaterally. Spondylosis of the imaged lower lumbar spine also noted. No SI joint or pubic symphysis diastasis. Surrounding soft tissues are unremarkable. SHE WAS STARTED ON NORMAL SALINE AT 75 ML/HR. HER HOME MEDICATIONS OF PERIACTIN, ARICEPT, PROZAC, LEVOTHYROXINE, MELATONIN, MONTELUKAST, VIBEGRON, AND SIMVASTATIN WERE RESUMED. WE WILL HAVE PHYSICAL THERAPY EVALUATE PATIENT. OTHERWISE, WE PLAN TO FOLLOW-UP WITH AM LABS AND CONTINUE TO MONITOR. TIME SPENT ON CLINICAL ASSESSMENT, REVIEWING LABS AND IMAGING, DECISION MAKING, AND DOCUMENTATION GREATER THAN 75 MINUTES. Patient was examined?: Yes
[2022-12-23] MEDS: MAG-OX TAB PO SCH (16:29)
--- NOTE | 2022-12-23 17:31 | PCM.PROG ---
Progress Note - Progress Note for Day of Date of Exam: 12/23/22 - Subjective Subjective: IS CURRENTLY OBSERVATION STATUS FOR TREATMENT OF DEHYDRATION, GENERALIZED WEAKNESS, ANEMIA, UTI, HEMATURIA, AND HYPOKALEMIA. TODAY, SHE IS ALERT, SITTING UP IN BED ON MORNING ROUNDS. SHE CONTINUES TO COMPLAIN OF GENERALIZED WEAKNESS AND LOW BACK PAIN THIS MORNING. SHE DENIES SIGNIFICANT IMPROVEMENT IN SYMPTOMS SINCE ADMISSION. ON EXAMINATION, HEART IS REGULAR IN RATE AND RHYTHM. BILATERAL LUNGS ARE CLEAR TO AUSCULTATION. ABDOMEN IS ROUND, SOFT, AND NOTED WITH SUPRAPUBIC TENDERNESS. NORMAL BOWEL SOUNDS NOTED IN ALL QUADRANTS. HER VITALS THIS MORNING ARE: 97.7-64-18-98%-153/67. LABS WERE OBTAINED. WBC 3.7, RBC 2.91, HGB 9.0, HCT 25.8, PLT COUNT 180, SODIUM 145, POTASSIUM 3.7, CHLORIDE 110, BUN 15, CREATININE 1.30, GLUCOSE 85, CALCIUM 8.0, MAGNESIUM 1.9, AST 20, ALT 11, ALK PHOS 58, TOTAL PROTEIN 5.6, ALBUMIN 2.9. A URINE CULTURE WAS SET UP AND IS PENDING. SHE IS CURRENTLY RECEIVING NORMAL SALINE AT 75 ML/HR. HER HOME MEDICATIONS OF PERIACTIN, ARICEPT, PROZAC, LEVOTHYROXINE, MELATONIN, MONTELUKAST, VIBEGRON, AND SIMVASTATIN WERE RESUMED. WE WILL HAVE PHYSICAL THERAPY EVALUATE PATIENT. WE WILL START MAGNESIUM OXIDE 400MG DAILY. WHEN HER RENAL FUNCTION IMPROVES, WE PLAN TO OBTAIN AN ABDOMEN/PELVIS CT WITH CONTRAST. OTHERWISE, WE WILL CONTINUE WITH CURRENT PLAN OF CARE. WE PLAN TO FOLLOW-UP WITH AM LABS AND CONTINUE TO MONITOR. TIME SPENT ON CLINICAL ASSESSMENT, REVIEWING LABS AND IMAGING, DECISION MAKING, AND DOCUMENTATION GREATER THAN 45 MINUTES. - Past Medical Family Social History Past Med/Fam/Surg Hx: No changes since H&P Allergies: Allergies bee venom protein (honey bee) Allergy (Verified 07/07/22 16:13) codeine Adverse Reaction (Verified 07/07/22 16:13) - Review of Systems ROS: No change since H&P - Vital Signs and I&O's Vital Signs: Vital Signs Temperature 97.8 F Temperature 98.0 F Pulse Rate [Brachial] 66 Pulse Rate [Brachial] 67 Respiratory Rate 20 Respiratory Rate 18 Blood Pressure [Left Arm] 181/75 Blood Pressure [Left Arm] 167/63 O2 Sat by Pulse Oximetry 98 O2 Sat by Pulse Oximetry 97 Intake and Output: Intake & Output 12/21/22 12/22/22 12/23/22 12/24/22 11:59 11:59 11:59 11:59 Intake Total 1104 / 1104 1365 / 1365 Output Total 400 / 400 Balance 704 / 704 1365 / 1365 - Physical Exam Oriented: Normal Eyes: Normal Ear: Normal Nose: Normal Throat: Normal Respiratory: Normal Cardiovascular: Normal : Normal Auscultation: Bowel Sounds: Normal Palpation: Normal Tenderness: Suprapubic Skin: Normal Musculoskeletal: Normal Psychiatric: Normal Mood Description: Calm Affect: Normal Speech Pattern: Clear, Appropriate - Laboratory and Diagnostics Result Diagrams: 12/23/22 05:19 12/23/22 05:19 Labs: Laboratory WBC 3.7 X10^3/uL (3.6-10.0) 12/23/22 05:19 RBC 2.91 X10^6/uL (3.5-5.4) L 12/23/22 05:19 Hgb 9.0 g/dL (12.0-16.0) L 12/23/22 05:19 Hct 25.8 % (36.0-47.0) L 12/23/22 05:19 MCV 88.5 fL (80.0-100.0) 12/23/22 05:19 MCH 31.0 pg (27.0-34.0) 12/23/22 05:19 MCHC 35.0 g/dL (33.0-35.0) 12/23/22 05:19 RDW 13.8 % (11.6-16.5) 12/23/22 05:19 Plt Count 180 X10^3/uL (150.0-450.0) 12/23/22 05:19 MPV 7.6 fL (7.4-11.0) 12/23/22 05:19 Neut % (Auto) 41.5 % (42.0-75.0) L 12/23/22 05:19 Lymph % (Auto) 38.9 % (21.0-51.0) 12/23/22 05:19 [place] % (Auto) 14.4 % (0.0-13.0) H 12/23/22 05:19 Eos % (Auto) 4.1 % (0.9-2.9) H 12/23/22 05:19 Baso % (Auto) 1.1 % (0.2-1.0) H 12/23/22 05:19 Neut # (Auto) 1.5 x10^3/uL (2.2-4.8) L 12/23/22 05:19 Lymph # (Auto) 1.4 X10^3/uL (1.3-2.9) 12/23/22 05:19 [place] # (Auto) 0.5 x10^3/uL (0.3-0.8) 12/23/22 05:19 Eos # (Auto) 0.2 x10^3/uL (0.0-0.2) 12/23/22 05:19 Baso # (Auto) 0.0 X10^3/uL (0.0-0.1) 12/23/22 05:19 Absolute Nucleated RBC 0.1 /100WBC 12/23/22 05:19 Sodium 145 mmol/L (136-145) 12/23/22 05:19 Corrected Sodium TNP 12/23/22 05:19 Potassium 3.7 mmol/L (3.5-5.1) 12/23/22 05:19 Chloride 110 mmol/L (98-107) H 12/23/22 05:19 Carbon Dioxide 29.0 mmol/L (21-32) 12/23/22 05:19 BUN 15 mg/dL (7-18) 12/23/22 05:19 Creatinine 1.30 mg/dL (0.55-1.02) H 12/23/22 05:19 Est GFR (MDRD) Af Amer 50 (>60) L 12/23/22 05:19 Est GFR (MDRD) Non-Af 42 (>60) L 12/23/22 05:19 Glucose 85 mg/dL (65-99) 12/23/22 05:19 Calcium 8.0 mg/dL (8.5-10.1) L 12/23/22 05:19 Corrected Calcium 8.9 mg/dL (8.5-10.1) 12/23/22 05:19 Magnesium 1.9 mg/dL (2.0-2.9) L 12/23/22 05:19 Total Bilirubin 0.30 mg/dL (0.2-1.0) 12/23/22 05:19 AST 20 Units/L (15-37) 12/23/22 05:19 ALT 11 Units/L (12-78) L 12/23/22 05:19 Alkaline Phosphatase 58 Units/L (46-116) 12/23/22 05:19 Total Protein 5.6 g/dL (6.4-8.2) L 12/23/22 05:19 Albumin 2.9 g/dL (3.4-5.0) L 12/23/22 05:19 Globulin 2.7 g/dL (2.5-4.5) 12/23/22 05:19 Albumin/Globulin Ratio 1.1 Ratio (1.1-2.1) 12/23/22 05:19 Specimen Type Clean catch urine 12/22/22 23:38 Urine Color Pale yellow (YELLOW) 12/22/22 23:38 Urine Appearance Clear (CLEAR) 12/22/22 23:38 Urine pH 7.0 (5.0 - 8.0) 12/22/22 23:38 Ur Specific [place] 1.015 (1.000-1.030) 12/22/22 23:38 Urine Protein Negative (NEGATIVE) 12/22/22 23:38 Urine Glucose (UA) Negative (NEGATIVE) 12/22/22 23:38 Urine Ketones Negative (NEGATIVE) 12/22/22 23:38 Urine Blood 1+ (NEGATIVE) 12/22/22 23:38 Urine Nitrite Negative (NEGATIVE) 12/22/22 23:38 Urine Bilirubin Negative (NEGATIVE) 12/22/22 23:38 Urine Urobilinogen Normal (NORMAL) 12/22/22 23:38 Ur Leukocyte Esterase Negative (NEGATIVE) 12/22/22 23:38 Urine RBC 0-2 /HPF (0-3) 12/22/22 23:38 Urine WBC None seen /HPF (0-5) 12/22/22 23:38 Ur Squamous Epith Cells Rare /HPF (NEGATIVE) 12/22/22 23:38 Urine Bacteria Negative /HPF (NEGATIVE) 12/22/22 23:38 Ur Culture Indicated? Yes/culture set up 12/22/22 23:38 - Plan (1) Dehydration Status: Acute Plan: NORMAL SALINE AT 75 ML/HR, MAGNESIUM OXIDE 400MG DAILY. HER HOME MEDICATIONS OF PERIACTIN, ARICEPT, PROZAC, LEVOTHYROXINE, MELATONIN, MONTELUKAST, VIBEGRON, AND SIMVASTATIN WERE RESUMED (2) UTI (urinary tract infection) Status: Acute Qualifiers: Urinary tract infection type: acute cystitis Hematuria presence: with hematuria Qualified Code(s): N30.01 - Acute cystitis with hematuria (3) Anemia Status: Acute Qualifiers: Anemia type: iron deficiency Iron deficiency anemia type: chronic blood loss Qualified Code(s): D50.0 - Iron deficiency anemia secondary to blood loss (chronic) (4) Hypokalemia Status: Acute (5) Hypomagnesemia Status: Acute (6) Generalized weakness Status: Acute (7) Dementia Status: Chronic Qualifiers: Dementia type: unspecified type Dementia behavioral or psychological symptom: without behavioral, psychotic, or mood disturbance or anxiety (8) Hypothyroidism Status: Chronic Qualifiers: Hypothyroidism type: acquired Qualified Code(s): E03.9 - Hypothyroidism, unspecified (9) Hyperlipidemia Status: Chronic Qualifiers: Hyperlipidemia type: mixed hyperlipidemia Qualified Code(s): E78.2 - Mixed hyperlipidemia
[2022-12-23] MEDS: MELATONIN PO SCH (20:12)
[2022-12-23] MEDS: SINGULAIR TAB 10 MG PO SCH (20:12)
[2022-12-23] MEDS: ZOCOR TAB 20 MG PO SCH (20:12)
[2022-12-24 04:16] VITALS: PULSE 74
[2022-12-24] MEDS: SYNTHROID 25 mcg TAB PO SCH (05:34)
[2022-12-24 06:02] LABS: BASOPHILS % (AUTO) 0.8 % (0.2-1.0); EOSINOPHILS # (AUTO) 0.2 x10^3/uL (0.0-0.2); EOSINOPHILS % (AUTO) 4.9 % (0.9-2.9); HEMATOCRIT 27.3 % (36.0-47.0); HEMOGLOBIN 9.5 g/dL (12.0-16.0); LYMPHOCYTES # (AUTO) 1.7 X10^3/uL (1.3-2.9); LYMPHOCYTES % (AUTO) 39.1 % (21.0-51.0); MEAN CORPUSCULAR HEMOGLOBIN 30.9 pg (27.0-34.0); MEAN CORPUSCULAR HGB CONC 34.8 g/dL (33.0-35.0); MEAN CORPUSCULAR VOLUME 88.6 fL (80.0-100.0); MONOCYTES # (AUTO) 0.5 x10^3/uL (0.3-0.8); MONOCYTES % (AUTO) 12.8 % (0.0-13.0); NEUTROPHILS # (AUTO) 1.8 x10^3/uL (2.2-4.8); NEUTROPHILS % (AUTO) 42.4 % (42.0-75.0); PLATELET COUNT 182 X10^3/uL (150.0-450.0); RED BLOOD COUNT 3.08 X10^6/uL (3.5-5.4); RED CELL DISTRIBUTION WIDTH 14.1 % (11.6-16.5); WHITE BLOOD COUNT 4.3 X10^3/uL (3.6-10.0)
[2022-12-24 06:20] LABS: ALANINE AMINOTRANSFERASE 14 Units/L (12-78); ALKALINE PHOSPHATASE 59 Units/L (46-116); ASPARTATE AMINO TRANSFERASE 25 Units/L (15-37); BLOOD UREA NITROGEN 17 mg/dL (7-18); CALCIUM 8.2 mg/dL (8.5-10.1); CARBON DIOXIDE 29.9 mmol/L (21-32); CHLORIDE 109 mmol/L (98-107); CREATININE 1.31 mg/dL (0.55-1.02); GLUCOSE 85 mg/dL (65-99); SODIUM 144 mmol/L (136-145); TOTAL PROTEIN 5.8 g/dL (6.4-8.2); eGFR NON BLACK RACES 41 (>60)
[2022-12-24] MEDS: MAG-OX TAB PO SCH (09:19)
[2022-12-24] MEDS: PROzac PO SCH (09:20)
[2022-12-24] MEDS: ARICEPT TAB 10 MG PO SCH (09:20)
[2022-12-24] MEDS: PERIACTIN TAB 4 MG PO SCH (09:20)
[2022-12-24 09:43] VITALS: BP 178/79; RESP 18; TEMP 98.2; O2SAT 98
[2022-12-24] MEDS: NS 1,000 ML IV 1,000 ML IV SCH (10:24)
[2022-12-24] MEDS: PATIENT'S HOME MEDICATION (Vibegron [Gemtesa] 75 mg tablet) PO SCH (11:42)
== END 2022-12-24 11:30 ==
LOC: MED/SURG
PROVIDERS: ADMIT Internal Medicine; ATTEND Internal Medicine
DX: R26.89 Other abnormalities of gait and mobility; E86.0 Dehydration; B96.1 Klebsiella pneumoniae [K. pneumoniae] as the cause of diseases classified elsewhere; R55 Syncope and collapse; R53.1 Weakness; N30.01 Acute cystitis with hematuria; E03.8 Other specified hypothyroidism; D64.89 Other specified anemias; R42 Dizziness and giddiness; E83.42 Hypomagnesemia; R62.7 Adult failure to thrive; M25.552 Pain in left hip; E78.2 Mixed hyperlipidemia